=== PATIENT | male | born 1945 | race Caucasian/White ===

== ENCOUNTER 2017-12-10 19:02 | Emergency (ER) | payer SELFPAY ==
--- NOTE | 2017-12-10 19:12 | ER Report ---
History and Physical Time Seen By MD: 19:11 HPI/ROS CHIEF COMPLAINT: Shortness of breath HISTORY OF PRESENT ILLNESS: Patient is a 72-year-old male here with complaints of shortness breath in the setting of COPD. Patient is from the [place] and is here on vacation visiting. He was reportedly seen yesterday in [place] and told to be [place] and was placed on prednisone. Patient has been saturating at 90% on room air since time of arrival. He does report mild shortness of breath with exertion. Denies fevers, cough, abdominal pain, nausea , vomiting. REVIEW OF SYSTEMS: Constitutional: No fever, no chills. Eyes: No discharge. ENT: No sore throat. Cardiovascular: No chest pain, no palpitations. Respiratory: No cough, + mild shortness of breath. Gastrointestinal: No abdominal pain, no vomiting. Genitourinary: No hematuria. Musculoskeletal: No back pain. Skin: No rashes. Neurological: No headache. Allergies: Coded Allergies: No Known Drug Allergies (Unverified , 12/10/17) Home Meds Reported Medications [inhaler] No Conflict Check, 2 PUFF INH QDAY 12/10/17 [levotrel] No Conflict Check, 1 TAB PO BID Y for LEG RESTLESSNESS 12/10/17 Constitutional Vital Sign - Last 24 Hours 12/10/17 12/10/17 12/10/17 12/10/17 19:07 19:10 19:17 19:28 Temp 97.7 Pulse 89 97 71 Resp 24 24 18 B/P (MAP) 189/127 173/108 (129) Pulse Ox 88 91 O2 Delivery Room Air 12/10/17 12/10/17 12/10/17 12/10/17 19:28 19:30 19:32 19:32 Pulse 72 74 Resp 22 14 B/P (MAP) 157/90 (112) Pulse Ox 90 98 O2 Delivery Room Air 12/10/17 12/10/17 12/10/17 12/10/17 19:47 19:52 20:00 20:07 Pulse 86 84 74 Resp 14 22 14 B/P (MAP) 151/88 (109) Pulse Ox 90 90 90 Physical Exam General Appearance: The patient is alert, has no immediate need for airway protection and no signs of toxicity. NAD Eyes: Pupils equal and round no pallor or injection. ENT, Mouth: Mucous membranes are moist. Respiratory: There are no retractions, lungs are clear to auscultation. Cardiovascular: Regular rate and rhythm. Gastrointestinal: Abdomen is soft and non tender, no masses, bowel sounds normal. Neurological: No focal deficits Skin: Warm and dry, no rashes. Musculoskeletal: Neck is supple non tender. Extremities are nontender, nonswollen and have full range of motion. DIFFERENTIAL DIAGNOSIS: After history and physical exam differential diagnosis was considered for shortness of breath including but not limited to pulmonary infectious process, COPD, asthma, pulmonary embolus and congestive heart failure. Medical Decision Making ED Course/Re-evaluation ED Course Patient is a 72-year-old male here with complaints of shortness of breath in the setting of COPD. He was evaluated yesterday at an outside facility and advised to to send sea [place] and to take a course of prednisone. Patient was well-appearing at time of evaluation, saturating 90% on room air. Patient was given DuoNeb therapies and monitored. Patient was given albuterol inhaler for outpatient use. Patient remained stable throughout course and was maintaining his oxygen saturations are 90% on room air. Patient remained asymptomatic throughout course of treatment. Decision to Disposition Date: Dec 10, 2017 Decision to Disposition Time: 20:29 Depart Departure Latest Vital Signs Vital Signs Date Time Temp Pulse Resp B/P (MAP) Pulse Ox O2 Delivery O2 Flow Rate FiO2 12/10/17 20:07 74 14 90 12/10/17 20:00 151/88 (109) 12/10/17 19:28 Room Air 12/10/17 19:07 97.7 Impression: Primary Impression: Dyspnea Condition: Improved Disposition: HOME OR SELF-CARE Patient Instructions: Dyspnea (ED) Additional Instructions: Please continue your prednisone as prescribed. Please return promptly if you develop increasing shortness breath, fevers, worsening cough. You may take 2 puffs of your inhaler every 4-6 hours as needed for shortness breath. TIMMY SAUNDERS DO Dec 10, 2017 19:12
[2017-12-10] MEDS ORDERED: [UNRECOGNIZED DRUG - OTHER] PO (19:23)
[2017-12-10] MEDS ORDERED: inhaler INH (19:23)
[2017-12-10] MEDS ORDERED: ALBUTEROL/IPRATROPIUM 3 ML NEB NEB ONE (19:25)
[2017-12-10 20:00] VITALS: BP 151/88
[2017-12-10] MEDS ORDERED: ALBUTEROL 8 GM INHALER INH ONE ×2 (20:30)
== END 2017-12-10 20:36 | disposition home or self-care (01) ==
LOC: ER 19:23
DX: R06.02 Shortness of breath (principal)
CPT/HCPCS: 94640; 99283; J3535; J7620